=== PATIENT | female | born 2000 | race Caucasian/White ===

== ENCOUNTER → 2019-12-05 16:36 | Observation (INO) ==
[2019-12-04 16:27] VITALS: BP 126/83
[2019-12-04] MEDS: Ringers Solution, Lactated 1,000 ML IVC SCH ×3 (16:51→17:53)
[2019-12-04] MEDS: Betamethasone Acet/SodPhos 30 MG/5 ML VIAL IM SCH (16:51)
[2019-12-04 17:12] LABS: Bilirubin,Urine Negative (Negative); Blood,Urine Negative (Negative); Clarity,Urine Clear (Clear); Color,Urine Colorless (Yellow); Glucose,Urine (UA) Normal (Normal); Ketones,Urine Negative (Negative); Leukocyte Esterase,Urine Small (Negative); Nitrite,Urine Negative (Negative); PH,Urine 6.5 pH Units (5.0-8.0); Protein,Urine Negative (Neg-Trace); RBC,Urine 0-3 per hpf (0-3); Specific Gravity,Urine < 1.005 (1.010-1.025); Squamous Epithelial Cell,Urine Few per hpf (None-Few); Urobilinogen,Urine Normal (Normal); WBC,Urine 0-3 per hpf (0-3)
[2019-12-04 17:22] LABS: Basophils # 0.1 K/mcL (0.0-0.2); Basophils % 0.5 %; Eosinophils # 0.1 K/mcL (0.0-0.6); Eosinophils % 0.7 %; Hematocrit 30.7 % (35.3-44.9); Hemoglobin 10.6 g/dL (11.5-15.4); Immature Granulocytes % 0.8 % (0-4); Lymphocytes # 1.4 K/mcL (0.6-4.6); Lymphocytes % 14.5 %; Mean Corpuscular HGB Conc 34.5 g/dL (31.6-35.5); Mean Corpuscular Hemoglobin 33.5 pg (28.0-33.3); Mean Corpuscular Volume 97.2 fL (83.0-100.0); Mean Platelet Volume 8.8 fL (9.4-12.4); Monocytes # 0.4 K/mcL (0.0-1.3); Monocytes % 4.5 %; Neutrophils # 7.7 K/mcL (1.6-8.9); Platelet Count 193 K/mcL (140-400); Red Blood Count 3.16 M/mcL (3.82-4.97); Red Cell Distribution Width 12.9 % (11.5-14.5); White Blood Count 9.8 K/mcL (4.3-11.1)
[2019-12-04] MEDS: NIFEdipine 10 MG CAPSULE PO SCH (19:57)
[2019-12-05] MEDS: NIFEdipine 10 MG CAPSULE PO SCH ×3 (02:08→14:23)
[2019-12-05] MEDS: Betamethasone Acet/SodPhos 30 MG/5 ML VIAL IM SCH (16:25)
[~2019-12-05 16:36] MED LIST: Pyridoxine (B-6) 50 MG TABLET PO SCH; Ringers Solution, Lactated 500 ML IVC ONE; Terbutaline 1 MG/ML VIAL SQ ONE
== END | disposition home or self-care (01) ==
LOC: 1NENULAB
PROVIDERS: ADMIT Obstetrics & Gynecology; ATTEND Obstetrics & Gynecology

== ENCOUNTER 2019-12-09 16:26 | Inpatient (IN) ==
[2019-12-09 16:09] LABS: Basophils # 0.1 K/mcL (0.0-0.2); Basophils % 0.4 %; Eosinophils # 0.1 K/mcL (0.0-0.6); Eosinophils % 0.9 %; Hematocrit 28.8 % (35.3-44.9); Hemoglobin 10.4 g/dL (11.5-15.4); Immature Granulocytes % 1.4 % (0-4); Lymphocytes # 1.7 K/mcL (0.6-4.6); Lymphocytes % 15.1 %; Mean Corpuscular HGB Conc 36.1 g/dL (31.6-35.5); Mean Corpuscular Hemoglobin 34.7 pg (28.0-33.3); Mean Platelet Volume 8.8 fL (9.4-12.4); Monocytes # 0.6 K/mcL (0.0-1.3); Neutrophils # 8.9 K/mcL (1.6-8.9); Platelet Count 201 K/mcL (140-400); Red Cell Distribution Width 12.6 % (11.5-14.5); Segmented Neutrophils % 77.2 %; White Blood Count 11.5 K/mcL (4.3-11.1)
[2019-12-09 16:18] LABS: Amphetamine Screen,Urine Negative ng/mL (Cutoff=1000); Barbiturate Screen,Urine Negative ng/mL (Cutoff=200); Benzodiazepines Screen,Urine Negative ng/mL (Cutoff=200); Cannabinoid Screen,Urine Negative ng/mL (Cutoff = 50); Cocaine Screen,Urine Negative ng/mL (Cutoff= 300); Opiate Screen,Urine Negative ng/mL (Cutoff=300); Phencyclidine Screen,Urine Negative ng/mL (Cutoff=25)
[~2019-12-09 16:26] MED LIST changes: +Famotidine 20 MG/2 ML VIAL IVP PRN; +Metoclopramide 10 MG/2 ML VIAL IVP PRN; +Naloxone 0.4 MG/ML INJ IVP PRN; +Penicillin G Potassium 5,000,000 UNIT in 0.9 % Sodium Chloride Mini Bag 100 ML IVPB ONE; -Pyridoxine (B-6) 50 MG TABLET PO SCH; +Ringers Solution, Lactated 1,000 ML IVC SCH; -Ringers Solution, Lactated 500 ML IVC ONE; -Terbutaline 1 MG/ML VIAL SQ ONE
[2019-12-09] MEDS: Penicillin G Potassium 2,500,000 UNIT in 0.9 % Sodium Chloride 100 ML IVPB SCH (20:08)
[2019-12-09] MEDS ORDERED: Oxytocin 20 units/ LR 1000 mL 20 UNIT/1,000 ML BAG IVC SCH (21:30)
[2019-12-09] MEDS ORDERED: EPHEDrine 50 MG/ML VIAL IVP PRN (21:57)
[2019-12-09] MEDS ORDERED: Epidural Premix (fent/bupiv) 110 ML EP SCH (22:00)
[2019-12-09] MEDS ORDERED: Epidural Premix (fent/bupiv) 110 ML EP ONE (22:04)
[2019-12-10] MEDS: Penicillin G Potassium 2,500,000 UNIT in 0.9 % Sodium Chloride 100 ML IVPB SCH (00:11)
[2019-12-10] MEDS ORDERED: Benzocaine/Menthol 56 GM AEROSOL SPRAY TP PRN (03:17)
[2019-12-10] MEDS ORDERED: Lanolin 7 G OINT...G. TP PRN (03:17)
[2019-12-10] MEDS ORDERED: Acetaminophen 325 MG TABLET PO PRN (03:17)
[2019-12-10] MEDS ORDERED: Oxytocin 20 units/ LR 1000 mL 20 UNIT/1,000 ML BAG IVC SCH (03:17)
[2019-12-10] MEDS ORDERED: Measles/Mumps/Rubella Vacc 0.5 ML VIAL SQ PRN (03:17)
[2019-12-10 05:56] LABS: Basophils # 0.1 K/mcL (0.0-0.2); Basophils % 0.3 %; Eosinophils # 0.1 K/mcL (0.0-0.6); Eosinophils % 0.3 %; Hematocrit 29.7 % (35.3-44.9); Hemoglobin 10.5 g/dL (11.5-15.4); Immature Granulocytes % 0.6 % (0-4); Lymphocytes # 1.3 K/mcL (0.6-4.6); Lymphocytes % 7.5 %; Mean Corpuscular HGB Conc 35.4 g/dL (31.6-35.5); Mean Corpuscular Hemoglobin 34.2 pg (28.0-33.3); Mean Corpuscular Volume 96.7 fL (83.0-100.0); Monocytes # 0.7 K/mcL (0.0-1.3); Monocytes % 4.2 %; Platelet Count 195 K/mcL (140-400); Red Blood Count 3.07 M/mcL (3.82-4.97); Red Cell Distribution Width 12.4 % (11.5-14.5); Segmented Neutrophils % 87.1 %; White Blood Count 17.2 K/mcL (4.3-11.1)
[2019-12-10] MEDS: Ibuprofen 600 MG TABLET PO PRN ×2 (06:47→19:55)
[2019-12-10] MEDS: Prenatal Vit/FA 1 EACH TABLET PO SCH (08:18)
[2019-12-11 07:44] VITALS: BP 121/79
[2019-12-11] MEDS: Prenatal Vit/FA 1 EACH TABLET PO SCH (08:10)
== END 2019-12-11 09:11 | disposition home or self-care (01) | DRG 807 ==
LOC: 1NENULAB → 1NENUOBS 12-10 03:16
PROVIDERS: ADMIT Obstetrics & Gynecology; ATTEND Obstetrics & Gynecology